=== PATIENT | female | born 1995 | race Caucasian/White ===

== ENCOUNTER 2020-07-06 18:10 | Emergency (ER) | payer OTHER, SELFPAY ==
[2020-07-06] VITALS (13 sets, daily range): BP systolic 99–135; BP diastolic 67–92; PULSE 89; RESP 16; TEMP 36; O2SAT 94–100
--- NOTE | ~2020-07-06 | CT_ITS ---
EXAMINATION: CT abdomen pelvis w con DATE: 07/06/2020 20:21 INDICATION: Epigastric pain TECHNIQUE: Computed tomography (CT) of the abdomen and pelvis was performed with 100 cc Omnipaque 350 intravenous contrast. The dose-length product was 1390.02 mGy-cm. Automated exposure control and ite rative reconstruction technique were employed. COMPARISON: None. FINDINGS: Lung bases are unremarkable. Heart size normal. No significant pleural or pericardial effus ion. No significant atherosclerosis. The liver, spleen, pancreas, adrenal glands and kidneys are unremarkable. Gallbladder is present. Sma ll fat-containing umbilical hernia. There is mild endometrial thickening. Normal appendix. Small fat- containing umbilical hernia. No significant gastric abnormality. Nonobstructive bowel gas pattern. No abnormal pelvic masses or fluid collections. No free air or free fluid. Gallbladder is present altho ugh contracted. No acute osseous abnormality. IMPRESSION: 1. No acute abdominal abnormality. Reviewed, dictated and finalized at location A. [facility]
[2020-07-06 18:28] LABS: Basophils Percent Auto 0.2 % (0.2-1.2); Eosinophils Absolute Auto 0.2 K/mm3 (0-0.3); Eosinophils Percent Auto 1.7 % (0-4.4); Hematocrit 43.8 % (37.0-47.0); Hemoglobin 14.3 g/dL (12.0-15.0); Immature Granulocyte Absolute 0.03 K/mm3 (0.00-0.031); Immature Granulocyte Percent A 0.3 % (0-0.5); Lymphocytes Absolute Auto 2.25 K/mm3 (0.9-3.2); Lymphocytes Percent Auto 21.7 % (18.3-44.2); Mean Corpuscular HGB Conc 32.6 g/dl (32-36); Mean Corpuscular Hemoglobin 30.8 pg (26-34); Mean Corpuscular Volume 94.4 fl (80-100); Mean Platelet Volume 9.8 fl (7.4-10.4); Monocytes Absolute Auto 0.7 K/mm3 (0.1-0.6); Monocytes Percent Auto 6.5 % (2.6-8.5); Neutrophils Absolute Auto 7.2 K/mm3 (1.3-6.7); Neutrophils Percent Auto 69.6 % (45.5-73.1); Platelet Count Result 339 k/mm3 (150-375); Red Blood Count 4.64 M/mm3 (4.2-5.4); Red Cell Distribution Width 12.2 % (11.5-14.5); White Blood Count 10.4 K/mm3 (4.5-10.0)
[2020-07-06 18:40] LABS: Alanine Aminotransferase 23 U/L (4-35); Albumin Level 4.5 g/dL (3.5-5.1); Alkaline Phosphatase 63 U/L (38-126); Anion Gap 10 mmol/L (8-16); Aspartate Amino Transferase 28 U/L (14-36); Bilirubin,Total 0.4 mg/dL (0.2-1.3); Blood Urea Nitrogen 16 mg/dL (7-17); Calcium 9.7 mg/dL (8.4-10.2); Carbon Dioxide 28 mmol/L (22-30); Chloride 100 mmol/L (98-107); Estimated CRCL calculation 110 ml/min; Estimated Glomerular Filt Rate > 60; Glucose 93 mg/dL (65-105); Lipase 89 U/L (23-300); Potassium 3.9 mmol/L (3.4-5.0); Sodium 138 mmol/L (137-145)
--- NOTE | 2020-07-06 18:43 | PC.NURSE ---
patient brought back to ED room 12 with c/o N/V/D for the last few days. denies known covid or known exposure. emesis x 1 today and no diarrhea today. alert. oriented. denies known fever at home. SL inserted. patient on BP and O2 monitors. urine sent to lab.
--- NOTE | 2020-07-06 18:52 | ED.ABDPAIN ---
HPI - Abdominal Pain General Chief Complaint: Abdominal Pain Stated Complaint: abdominal pain Time Seen by Provider: 07/06/20 18:51 Source: patient Mode of arrival: ambulatory Limitations: no limitations History of Present Illness HPI narrative: Patient is a 24-year-old female who presents for evaluation of abdominal pain. Patient reports epigastric abdominal pain which is sharp, burning in nature associated with nausea and one episode of emesis yesterday. Patient states pain has been intermittent over the past 3 days, she does report symptoms are aggravated whenever she eats. Patient denies history of abdominal surgery. She does report a family history of gallbladder problems. She denies fever, chills. Sometimes she states the pain will radiate to her middle back. She denies any chest pain or shortness of breath. No lower abdominal pain, dysuria or hematuria. Related Data Allergies Allergy/AdvReac Type Severity Reaction Status Date / Time No Known Allergies Allergy Verified 07/02/19 12:40 Review of Systems Review of Systems: Narrative: CONSTITUTIONAL: Denies fever, chills, or sweats. EYES: Denies visual changes, redness, or discharge. ENT: Denies rhinorrhea, congestion, sore throat, or otalgia. CARDIOVASCULAR: Denies chest pain, palpitations, or edema. RESPIRATORY: Denies cough or dyspnea. GASTROINTESTINAL: Reports abdominal pain, nausea and vomiting GENITOURINARY: Denies dysuria or hematuria. SKIN: Denies rash or itching. MUSCULOSKELETAL: Denies current back pain, joint pain, or myalgia. NEUROLOGIC: Denies headache, numbness, or weakness. [facility] Past Medical History Medical History No significant past medical history Surgical History Surgical History Hx of myringotomy Social History Social History Smoking status: Never smoker Exam Narrative: Exam Narrative: GENERAL: Awake, alert, conversant HEAD: Normocephalic, atraumatic. EYES: PERRLA and EOMI. ENT: Nares clear, no rhinorrhea or epistaxis. Mucous membranes moist. NECK: Supple. CHEST: No respiratory distress, breathing even and non labored HEART: Regular rate, sinus rhythm ABDOMEN:Non distended, tender in the epigastrium, no guarding, no rebound, nonrigid EXTREMITIES: Normal range of motion. No edema. SKIN: Warm, dry, no rash. NEURO:No focal deficits. Alert and oriented x3 Course Vital Signs Vital signs: Vital Signs Temperature 36.0 C L 07/06/20 18:12 Pulse Rate 89 07/06/20 18:12 Respiratory Rate 16 07/06/20 18:12 Blood Pressure 135/85 07/06/20 18:12 Pulse Oximetry 100 07/06/20 18:12 Temperature 36.0 C L 07/06/20 18:12 Pulse Rate 89 07/06/20 18:12 Respiratory Rate 16 07/06/20 18:12 Blood Pressure 135/85 07/06/20 18:12 Pulse Oximetry 98 07/06/20 18:34 MDM - Abdominal Pain MDM Narrative Medical decision making narrative: Patient's abdomen is soft without significant pain or signs of surgical abdomen on serial exams. Symptoms do seem most consistent with possible cholelithiasis, no signs of cholecystitis based on laboratory results or imaging findings tonight. No focal right upper quadrant pain. Patient is nontoxic-appearing. Lab and imaging evaluations are reviewed and patient is felt to be a reasonable candidate for outpatient management. I advised patient to adhere to a low-fat low acid diet. Patient was instructed as to limitations of imaging and lab evaluation and encouraged to return to the emergency department her primary physician for repeat exam in 12 hours if continued or worsening pain. Differential Diagnosis Differential diagnosis: Likely abdominal pain, constipation, diverticulitis, gastroenteritis, pancreatitis and small bowel obstruction Medical Records Attestation: I reviewed the patient's medical records. Lab Data Attestation: I revie
[2020-07-06 19:04] LABS: Add Urine Microscopic? YES; Amorphous Sediment Urine Few; Appearance Urine Cloudy (Clear); Bilirubin Urine Negative (Negative); Blood Urine 1+ (Negative); Color Urine Yellow (Yellow); Glucose Urine UA Negative (Negative); Ketones Urine Negative (Negative); Leukocyte Esterase Ur Trace LEU/UL (Negative); Mucus Urine Rare /lpf; Nitrate Urine Negative (Negative); Protein Urine Negative (Negative); Specific Grav Ur 1.023 (1.001-1.035); Squamous Epithelial Cell Urine Many /hpf (Few); Urobilinogen Urine Negative mg/dL (<2.0); WBC Urine 0-3 /hpf
[2020-07-06] MEDS: MAG HYDROX/AL HYDROX/SIMETH 30 ML UDC PO (19:45)
--- NOTE | 2020-07-06 19:45 | PC.NURSE ---
patient medicated as ordered. resting on stretcher. warm blanket given. ice water given.
[2020-07-06] MEDS: SODIUM CHLORIDE 0.9% IV 1,000 ML 999 ML IV CONT (19:48)
[2020-07-06] MEDS: DICYCLOMINE HCL INJ 20 MG/2 ML VIAL IM (19:50)
[2020-07-06] MEDS: ONDANSETRON INJ 4 MG/2 ML VIAL IV PUSH (19:50)
[2020-07-06] MEDS: FAMOTIDINE 20 MG/2 ML VIAL IV PUSH (19:50)
== END 2020-07-06 21:06 | disposition home or self-care (01) ==
PROVIDERS: Emergency Provider Emergency Medicine; PCP Registered Nurse
DX: K29.60 Other gastritis without bleeding (principal)
CPT/HCPCS: 36415; 74177; 80053; 81001; 81025; 83690; 85025; 96365; 96372; 96375; 99284; A9270; J0131; J0500; J2405; J7030; Q9967

== ENCOUNTER 2022-01-28 08:29 | Emergency (ER) | payer OTHER, SELFPAY ==
[2022-01-28 08:39] VITALS: BP 115/82; PULSE 101; RESP 16; TEMP 36.1; O2SAT 99
--- NOTE | 2022-01-28 08:43 | ED.URI ---
HPI - URI/Sore Throat General Chief Complaint: Upper Respiratory Infection Stated Complaint: Positive for Covid and still having symptoms Time Seen by Provider: 01/28/22 08:43 Source: patient Mode of arrival: ambulatory Limitations: no limitations History of Present Illness HPI Narrative: 26-year-old female presents with complaint of continued nasal congestion, sinus congestion and pressure since having COVID 10 days ago. Use Flonase a few days but did not help. Not taking any other [id number] medications to treat her congestion. States over the past 2 days she has had intermittent dizziness. Denies fever chills. Is concerned that she has a sinus infection. All systems reviewed and negative except as noted above. Related Data Home Medications Medication Instructions Recorded Confirmed sertraline 50 mg tablet 1 tablet PO DAILY 01/28/22 01/28/22 Allergies Allergy/AdvReac Type Severity Reaction Status Date / Time No Known Allergies Allergy Verified 01/28/22 08:35 Review of Systems Review of Systems: CONSTITUTIONAL: Denies fever, chills, or sweats. EYES: Denies visual changes, redness, or discharge. ENT: Reports rhinorrhea, congestion, sinus pressure. Denies sore throat, or otalgia. CARDIOVASCULAR: Denies chest pain, palpitations, or edema. RESPIRATORY: Denies cough or dyspnea. GASTROINTESTINAL: Denies abdominal pain, nausea, vomiting, or diarrhea. GENITOURINARY: Denies dysuria or hematuria. SKIN: Denies rash or itching. MUSCULOSKELETAL: Denies back pain, joint pain, or myalgia. NEUROLOGIC: Denies headache, numbness, or weakness. PSYCHIATRIC: Denies anxiety or depression. All other systems reviewed are negative, except as documented in HPI. [facility] Past Medical History Medical History No significant past medical history Surgical History Surgical History Hx of myringotomy Social History Social History Smoking status: Never smoker Comments At time of signature, agree with nursing past medical, surgical, social and family history. There is no relevant family history pertinent to the presenting complaint. Exam Narrative: GENERAL: This is a well-nourished, well-developed patient, in no apparent distress. HEAD: normocephalic, atraumatic. EYES: PERRL. Sclera clear/white. Vision is grossly intact. EARS: External ears normal, auditory canals clear and without drainage, fluid to bilateral TMs with bubbles. NOSE: External nose normal with clear fluid from both nares, erythema and swelling. Moderate congestion, maxillary sinus tenderness bilaterally. THROAT: Mucous membranes moist, posterior pharynx clear. NECK: Neck supple, non-tender without lymphadenopathy, masses or thyromegaly. CARDIOVASCULAR: Regular rate and rhythm without murmurs, gallops, or rubs. RESPIRATORY: Clear to auscultation. Breath sounds equal bilaterally. No wheezes, rales, or rhonchi. SKIN: warm, Dry, intact with no suspicious lesions or rash, good texture and turgor. NEURO: awake, alert, and oriented to person, place and time. There were no obvious focal neurologic abnormalities. EXTREMITIES: No joint tenderness, effusion, or edema noted. Course Course Level of Care: Express Care Visit Vital Signs Vital signs: Vital Signs Temperature 36.1 C L 01/28/22 08:39 Pulse Rate 101 H 01/28/22 08:39 Respiratory Rate 16 01/28/22 08:39 Blood Pressure 115/82 01/28/22 08:39 Pulse Oximetry 99 01/28/22 08:39 Oxygen Delivery Room Air 01/28/22 08:39 Temperature 36.1 C L 01/28/22 08:39 Pulse Rate 101 H 01/28/22 08:39 Respiratory Rate 16 01/28/22 08:39 Blood Pressure 115/82 01/28/22 08:39 Pulse Oximetry 99 01/28/22 08:39 Oxygen Delivery Room Air 01/28/22 08:39 Reviewed MDM - URI/Sore Throat MDM Narrative Medical decision making narrative:
== END 2022-01-28 08:55 | disposition home or self-care (01) ==
PROVIDERS: Emergency Provider Nurse Practitioner Family; PCP Registered Nurse
DX: J01.90 Acute sinusitis, unspecified (principal); H65.03 Acute serous otitis media, bilateral; F32.A Depression, unspecified
CPT/HCPCS: 99213; G0463